=== PATIENT | male | born 1975 | race Caucasian/White ===

== ENCOUNTER 2017-07-06 10:37 | Emergency (ER) | payer OTHER ==
[2017-07-06 10:56] VITALS: BP 119/56; PULSE 53; TEMP 98.8; BMI 26.1
--- NOTE | 2017-07-06 12:21 | PDOC ---
History of Present Illness - General Chief Complaint: Pain, Acute Stated Complaint: SWOLLEN LT LEG Time Seen by Provider: 07/06/17 11:55 History Source: Patient Exam Limitations: No Limitations - History of Present Illness Initial Comments: 07/06/17 12:16 language line used for history, physical, and discharge planning Patient came for evaluation of left knee swelling and pain over the past 3 days. States has suffered a problems for over a year, has been seen in another emergency department where he obtained "and and get injection" which seemed to help. Was to follow up with an orthopedist but did not complete. 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 3 days ago started to swell and became concerned. Denies fever, denies erythema to knee or joint. No recent trauma or exercise change. No recent illness, URI or other infectious problem 07/06/17 18:52 Occurred: reports: yesterday Severity: reports: moderate Pain Location: reports: lower extremity (left knee) Method of Injury: Yes: unknown Modifying Factors: improves with: None, cold therapy, immobilization Loss of Consciousness: no loss of consciousness (left knee) Associated Symptoms (Fall): denies symptoms Past History - Travel Traveled outside of the country in the last 30 days: No Close contact w/someone who was outside of country & ill: No - Past Medical History Allergies/Adverse Reactions: Allergies Allergy/AdvReac Type Severity Reaction Status Date / Time No Known Allergies Allergy Verified 07/06/17 10:53 Home Medications: Ambulatory Orders Naproxen [Naprosyn -] 500 mg PO TID #30 tablet 07/06/17 COPD: No - Suicide/Smoking/Psychosocial Hx Smoking History: Never smoked Have you smoked in the past 12 months: No Information on smoking cessation initiated: No Hx Alcohol Use: No Drug/Substance Use Hx: No Substance Use Type: None Trauma Specific PMHX - Complaint Specific PMHX Arthritis: No Back Injury: No Neck Injury: No Review of Systems - Review of Systems Able to Perform ROS?: Yes Is the patient limited Swedish proficient: Yes Constitutional: Yes: Symptoms Reported, See HPI, Malaise. No: Fever HEENTM: No: Symptoms Reported Respiratory: No: Symptoms reported Musculoskeletal: Yes: Symptoms Reported, See HPI, Joint Pain, Joint Swelling, Joint Stiffness (left knee) Neurological: Yes: Symptoms reported All Other Systems: Reviewed and Negative *Physical Exam - Vital Signs Last Vital Signs Temp Pulse Resp BP Pulse Ox 98.8 F 53 L 18 119/56 100 07/06/17 10:53 07/06/17 10:53 07/06/17 10:53 07/06/17 10:53 07/06/17 10:53 - Physical Exam General Appearance: Yes: Nourished, Appropriately Dressed, Apparent Distress, Mild Distress HEENT: positive: SHARDA, Normal ENT Inspection, TMs Normal, Pharynx Normal Neck: positive: Supple. negative: Tender Respiratory/Chest: positive: Lungs Clear Gastrointestinal/Abdominal: positive: Soft Musculoskeletal: positive: Normal Inspection Extremity: positive: Normal Capillary Refill. negative: Normal Inspection, Normal Range of Motion (range of motion approximately 70% of normal due to swelling and tenderness to bilateral aspects of knee, patella is not mobile, but has no crepitus or step-offs. Has swelling approximately 50% larger than right leg. With ballottement. Neurovascular intact to foot and ambulatory without unsteadiness) Integumentary: positive: Dry, Warm, Pale. negative: Erythema Neurologic: positive: surveyor helper rod II-XII NML intact, Fully Oriented, Alert, Normal Mood/ Affect, Normal Response, Motor Strength 5/5 Procedures - Splinting Splint Location: Left: Knee Pre-Proc Neuro Vasc Exam: normal Pre-Made Type: knee immobilizer *DC/Admit/Observation/Transfer Diagnosis at time of Disposition: Strain of left knee Qualifiers: Encounter type: initial encounter Qualified Code(s): S86.912A - Strain of unspecified muscle(s) and tendon(s) at lower leg level, left leg, initial encounter - Discharge Dispostion Disposition: HOME Condition at time of disposition: Stable Decision to Admit order: No - Prescriptions Prescriptions: Naproxen [Naprosyn -] 500 mg PO TID #30 tablet - Referrals Referrals: Narciso Hinds [Primary Care Provider] - Chucky Rosario MD [Staff Physician] - - Patient Instructions Printed Discharge Instructions: DI for Knee Pain Additional Instructions: Rest, ice to area on and off for 15 minutes 4-6 times a day Avoid heavy lifting or exercise until pain and swelling is resolved or until further directed Keep area highly elevated to reduce swelling Use splints/Hector wrap as directed Followup with orthopedist in one to 2 days if not improving, if significantly improved may wait one week for followup with orthopedist May use Naprosyn 500 mg tablet every 8 hours as needed for pain - Post Discharge Activity Forms/Work/School Notes: Back to Work
== END 2017-07-06 12:40 | disposition home or self-care (01) ==
LOC: JERFT 10:37
DX: S86.812A Strain of other muscle(s) and tendon(s) at lower leg level, left leg, initial encounter (principal); X58.XXXA Exposure to other specified factors, initial encounter; Y93.89 Activity, other specified; Y92.89 Other specified places as the place of occurrence of the external cause; Y99.8 Other external cause status
CPT/HCPCS: 99281-25